=== PATIENT | male | born 1965 | race Caucasian/White ===

== ENCOUNTER 2017-03-12 07:49 | Outpatient (CLI) | payer OTHER ==
[2016-07-17 13:28] VITALS: BP 131/96
[2017-03-12] MEDS ORDERED: SALINE FLUSH 10 ML DISP.SYRIN IVF ONE (08:00)
[2017-03-12] MEDS ORDERED: HEPARIN SODIUM 500 UNIT/5 ML DISP.SYRIN IV ONE (08:00)
[2017-03-12] MEDS ORDERED: NORMAL SALINE 1,000 ML IV.SOLN IV ONE (08:00)
== END 2017-03-12 07:50 ==
LOC: INF 07:49
PROVIDERS: ATTEND Clinical Nurse Specialist Oncology
DX: C7A.8 Other malignant neuroendocrine tumors (principal); K90.9 Intestinal malabsorption, unspecified; E86.0 Dehydration
CPT/HCPCS: 96360; 96361; J1642; J7030

== ENCOUNTER 2017-03-15 07:55 | Outpatient (CLI) | payer OTHER ==
[2016-07-17 13:28] VITALS: BP 131/96
[2017-03-15] MEDS ORDERED: HEPARIN SODIUM 500 UNIT/5 ML DISP.SYRIN IV ONE (08:00)
[2017-03-15] MEDS ORDERED: SALINE FLUSH 10 ML DISP.SYRIN IVF ONE (08:00)
[2017-03-15] MEDS ORDERED: NORMAL SALINE 1,000 ML IV.SOLN IV ONE (08:00)
== END 2017-03-15 07:56 ==
LOC: INF 07:55
PROVIDERS: ATTEND Clinical Nurse Specialist Oncology
DX: C7A.8 Other malignant neuroendocrine tumors (principal); K90.9 Intestinal malabsorption, unspecified; E86.0 Dehydration
CPT/HCPCS: 96360; 96361; J1642; J7030

== ENCOUNTER 2017-03-19 07:48 | Outpatient (CLI) | payer OTHER ==
[2016-07-17 13:28] VITALS: BP 131/96
[2017-03-19] MEDS ORDERED: SALINE FLUSH 10 ML DISP.SYRIN IVF ONE (09:00)
[2017-03-19] MEDS ORDERED: HEPARIN SODIUM 500 UNIT/5 ML DISP.SYRIN IV ONE (09:00)
[2017-03-19] MEDS ORDERED: NORMAL SALINE 1,000 ML IV.SOLN IV ONE (09:00)
== END 2017-03-19 07:50 ==
LOC: INF 07:48
PROVIDERS: ATTEND Clinical Nurse Specialist Oncology
DX: C7A.8 Other malignant neuroendocrine tumors (principal); K90.9 Intestinal malabsorption, unspecified; E86.0 Dehydration
CPT/HCPCS: 96360; 96361; J1642; J7030

== ENCOUNTER 2017-03-26 07:46 | Outpatient (CLI) | payer OTHER ==
[2016-07-17 13:28] VITALS: BP 131/96
[2017-03-26] MEDS ORDERED: HEPARIN SODIUM 500 UNIT/5 ML DISP.SYRIN IV ONE (08:00)
[2017-03-26] MEDS ORDERED: NORMAL SALINE 1,000 ML IV.SOLN IV ONE (08:00)
[2017-03-26] MEDS ORDERED: SALINE FLUSH 10 ML DISP.SYRIN IVF ONE (08:00)
[2017-03-26] MEDS ORDERED: 0.9 % SODIUM CHLORIDE 2,000 ML IV SCH (08:00)
== END 2017-03-26 07:47 ==
LOC: INF 07:46
PROVIDERS: ATTEND Clinical Nurse Specialist Oncology
DX: C7A.8 Other malignant neuroendocrine tumors (principal); K90.9 Intestinal malabsorption, unspecified; E86.0 Dehydration
CPT/HCPCS: 96360; 96361; J1642; J7030

== ENCOUNTER 2017-03-29 14:51 | Outpatient (CLI) | payer OTHER ==
[~2017-03-29 14:51] MED LIST: 0.9 % SODIUM CHLORIDE 1,000 ML IV ONE
[2017-03-29] MEDS ORDERED: 0.9 % SODIUM CHLORIDE 2,000 ML IV ONE (14:55)
[2017-03-29] MEDS ORDERED: SALINE FLUSH 10 ML DISP.SYRIN IV ONE (14:56)
[2017-03-29] MEDS ORDERED: NORMAL SALINE 1,000 ML IV.SOLN IV ONE (15:00)
[2017-03-29] MEDS ORDERED: HEPARIN SODIUM 500 UNIT/5 ML DISP.SYRIN IV ONE (15:00)
[2017-03-29] MEDS ORDERED: SALINE FLUSH 10 ML DISP.SYRIN IVF ONE (15:00)
[2017-03-29] MEDS ORDERED: 0.9 % SODIUM CHLORIDE 1,000 ML IV ONE (16:00)
[2017-03-29 16:16] VITALS: BP 90/63
[2017-03-29] MEDS ORDERED: HEPARIN SODIUM,PORCINE 30 UNITS INJ IV ONE (17:00)
== END 2017-03-29 14:52 ==
LOC: INF 14:51
PROVIDERS: ATTEND Clinical Nurse Specialist Oncology
DX: C7A.8 Other malignant neuroendocrine tumors (principal); K90.9 Intestinal malabsorption, unspecified; E86.0 Dehydration
CPT/HCPCS: 96360; 96361; J1642; J7030

== ENCOUNTER 2017-04-02 07:52 | Outpatient (CLI) | payer OTHER ==
[2017-04-02] MEDS ORDERED: NORMAL SALINE 1,000 ML IV.SOLN IV ONE (08:00)
[2017-04-02] MEDS ORDERED: SALINE FLUSH 10 ML DISP.SYRIN IVF ONE (08:00)
[2017-04-02] MEDS ORDERED: HEPARIN SODIUM 500 UNIT/5 ML DISP.SYRIN IV ONE (08:00)
[2017-04-02] MEDS ORDERED: 0.9 % SODIUM CHLORIDE 1,000 ML IV SCH (09:00)
== END 2017-04-02 07:53 ==
LOC: INF 07:52
PROVIDERS: ATTEND Clinical Nurse Specialist Oncology
DX: C7A.098 Malignant carcinoid tumors of other sites (principal); K90.9 Intestinal malabsorption, unspecified; E86.0 Dehydration
CPT/HCPCS: J1642; J7030; 96360; 96361

== ENCOUNTER 2017-04-05 07:52 | Outpatient (CLI) | payer OTHER ==
[2017-04-05] MEDS ORDERED: HEPARIN SODIUM 500 UNIT/5 ML DISP.SYRIN IV ONE (08:00)
[2017-04-05] MEDS ORDERED: NORMAL SALINE 1,000 ML IV.SOLN IV ONE (08:00)
[2017-04-05] MEDS ORDERED: SALINE FLUSH 10 ML DISP.SYRIN IVF ONE (08:00)
== END 2017-04-05 07:53 ==
LOC: INF 07:52
PROVIDERS: ATTEND Clinical Nurse Specialist Oncology
DX: C7A.098 Malignant carcinoid tumors of other sites (principal); K90.9 Intestinal malabsorption, unspecified; E86.0 Dehydration
CPT/HCPCS: 96360; 96361; J1642; J7030

== ENCOUNTER 2017-04-09 07:41 | Outpatient (CLI) | payer OTHER ==
[2017-04-09] MEDS ORDERED: SALINE FLUSH 10 ML DISP.SYRIN IVF ONE (08:00)
[2017-04-09] MEDS ORDERED: NORMAL SALINE 1,000 ML IV.SOLN IV ONE (08:00)
[2017-04-09] MEDS ORDERED: HEPARIN SODIUM 500 UNIT/5 ML DISP.SYRIN IV ONE (08:00)
[2017-04-09] MEDS ORDERED: 0.9 % SODIUM CHLORIDE 2,000 ML IV SCH (09:00)
== END 2017-04-09 07:45 ==
LOC: INF 07:41
PROVIDERS: ATTEND Clinical Nurse Specialist Oncology
DX: C7A.098 Malignant carcinoid tumors of other sites (principal); K90.9 Intestinal malabsorption, unspecified; E86.0 Dehydration
CPT/HCPCS: 96360; 96361; J1642; J7030

== ENCOUNTER 2017-04-16 07:45 | Outpatient (CLI) | payer OTHER ==
[2017-04-16] MEDS ORDERED: 0.9 % SODIUM CHLORIDE 2,000 ML IV ONE (07:57)
[2017-04-16] MEDS ORDERED: NORMAL SALINE 1,000 ML IV.SOLN IV ONE (08:00)
[2017-04-16] MEDS ORDERED: HEPARIN SODIUM 500 UNIT/5 ML DISP.SYRIN IV ONE (08:00)
[2017-04-16] MEDS ORDERED: SALINE FLUSH 10 ML DISP.SYRIN IVF ONE (08:00)
== END 2017-04-16 07:46 ==
LOC: INF 07:45
PROVIDERS: ATTEND Clinical Nurse Specialist Oncology
DX: C7A.098 Malignant carcinoid tumors of other sites (principal); K90.9 Intestinal malabsorption, unspecified
CPT/HCPCS: J1642; J7030; 96360; 96361

== ENCOUNTER 2017-04-19 07:45 | Outpatient (CLI) | payer OTHER ==
[2017-04-19] MEDS ORDERED: SALINE FLUSH 10 ML DISP.SYRIN IVF ONE (08:00)
[2017-04-19] MEDS ORDERED: HEPARIN SODIUM 500 UNIT/5 ML DISP.SYRIN IV ONE (08:00)
[2017-04-19] MEDS ORDERED: NORMAL SALINE 1,000 ML IV.SOLN IV ONE (08:00)
== END 2017-04-19 07:46 ==
LOC: INF 07:45
PROVIDERS: ATTEND Clinical Nurse Specialist Oncology
DX: C7A.098 Malignant carcinoid tumors of other sites (principal); K90.9 Intestinal malabsorption, unspecified
CPT/HCPCS: J1642; J7030; 96360; 96361

== ENCOUNTER 2017-04-23 07:43 | Outpatient (CLI) | payer OTHER ==
[2017-04-23] MEDS ORDERED: HEPARIN SODIUM 500 UNIT/5 ML DISP.SYRIN IV ONE (08:00)
[2017-04-23] MEDS ORDERED: NORMAL SALINE 1,000 ML IV.SOLN IV ONE (08:00)
[2017-04-23] MEDS ORDERED: SALINE FLUSH 10 ML DISP.SYRIN IVF ONE (08:00)
== END 2017-04-23 07:44 ==
LOC: INF 07:43
PROVIDERS: ATTEND Clinical Nurse Specialist Oncology
DX: C7A.098 Malignant carcinoid tumors of other sites (principal); K90.9 Intestinal malabsorption, unspecified
CPT/HCPCS: 96360; 96361; J1642; J7030

== ENCOUNTER 2017-04-26 07:44 | Outpatient (CLI) | payer OTHER ==
[2017-04-26] MEDS ORDERED: SALINE FLUSH 10 ML DISP.SYRIN IVF ONE (08:00)
[2017-04-26] MEDS ORDERED: HEPARIN SODIUM 500 UNIT/5 ML DISP.SYRIN IV ONE (08:00)
[2017-04-26] MEDS ORDERED: NORMAL SALINE 1,000 ML IV.SOLN IV ONE (08:00)
== END 2017-04-26 07:45 ==
LOC: INF 07:44
PROVIDERS: ATTEND Clinical Nurse Specialist Oncology
DX: C7A.098 Malignant carcinoid tumors of other sites (principal); K90.9 Intestinal malabsorption, unspecified
CPT/HCPCS: 96360; 96361; J1642; J7030

== ENCOUNTER 2017-04-30 07:51 | Outpatient (CLI) | payer OTHER ==
[~2017-04-30 07:51] MED LIST changes: -0.9 % SODIUM CHLORIDE 1,000 ML IV ONE; +0.9 % SODIUM CHLORIDE 2,000 ML IV ONE; +SALINE FLUSH 10 ML DISP.SYRIN IVF ONE
[2017-04-30] MEDS ORDERED: HEPARIN SODIUM 500 UNIT/5 ML DISP.SYRIN IV ONE (08:00)
[2017-04-30] MEDS ORDERED: SALINE FLUSH 10 ML DISP.SYRIN IVF ONE (08:00)
[2017-04-30] MEDS ORDERED: NORMAL SALINE 1,000 ML IV.SOLN IV ONE (08:00)
== END 2017-04-30 12:50 ==
LOC: INF 07:51
PROVIDERS: ATTEND Clinical Nurse Specialist Oncology
DX: C7A.098 Malignant carcinoid tumors of other sites (principal); K90.9 Intestinal malabsorption, unspecified
CPT/HCPCS: 96360; 96361; J1642; J7030

== ENCOUNTER 2017-05-03 07:50 | Outpatient (CLI) | payer OTHER ==
[2017-05-03] MEDS ORDERED: HEPARIN SODIUM 500 UNIT/5 ML DISP.SYRIN IV ONE (08:00)
[2017-05-03] MEDS ORDERED: NORMAL SALINE 1,000 ML IV.SOLN IV ONE (08:00)
[2017-05-03] MEDS ORDERED: SALINE FLUSH 10 ML DISP.SYRIN IVF ONE (08:00)
== END 2017-05-03 09:02 ==
LOC: INF 07:50
PROVIDERS: ATTEND Clinical Nurse Specialist Oncology
DX: C7A.098 Malignant carcinoid tumors of other sites (principal); K90.9 Intestinal malabsorption, unspecified
CPT/HCPCS: 96360; 96361; J1642; J7030

== ENCOUNTER 2017-05-07 07:44 | Outpatient (CLI) | payer OTHER ==
[2017-05-07] MEDS ORDERED: NORMAL SALINE 1,000 ML IV.SOLN IV ONE (08:00)
[2017-05-07] MEDS ORDERED: SALINE FLUSH 10 ML DISP.SYRIN IVF ONE (08:00)
[2017-05-07] MEDS ORDERED: HEPARIN SODIUM 500 UNIT/5 ML DISP.SYRIN IV ONE (08:00)
== END 2017-05-07 07:45 ==
LOC: INF 07:44
PROVIDERS: ATTEND Clinical Nurse Specialist Oncology
DX: C7A.098 Malignant carcinoid tumors of other sites (principal); K90.9 Intestinal malabsorption, unspecified
CPT/HCPCS: J1642; J7030; 96360; 96361

== ENCOUNTER 2017-05-10 07:47 | Outpatient (CLI) | payer OTHER ==
[2017-05-10] MEDS ORDERED: HEPARIN SODIUM 500 UNIT/5 ML DISP.SYRIN IV ONE (08:00)
[2017-05-10] MEDS ORDERED: SALINE FLUSH 10 ML DISP.SYRIN IVF ONE (08:00)
[2017-05-10] MEDS ORDERED: NORMAL SALINE 1,000 ML IV.SOLN IV ONE (08:00)
== END 2017-05-10 08:00 ==
LOC: INF 07:47
PROVIDERS: ATTEND Clinical Nurse Specialist Oncology
DX: C7A.098 Malignant carcinoid tumors of other sites (principal); K90.9 Intestinal malabsorption, unspecified
CPT/HCPCS: J1642; J7030; 96360; 96361

== ENCOUNTER 2017-05-14 07:45 | Outpatient (CLI) | payer OTHER ==
[2017-05-14] MEDS ORDERED: NORMAL SALINE 1,000 ML IV.SOLN IV ONE (08:00)
[2017-05-14] MEDS ORDERED: SALINE FLUSH 10 ML DISP.SYRIN IVF ONE (08:00)
[2017-05-14] MEDS ORDERED: HEPARIN SODIUM 500 UNIT/5 ML DISP.SYRIN IV ONE (08:00)
== END 2017-05-14 07:46 ==
LOC: INF 07:45
PROVIDERS: ATTEND Clinical Nurse Specialist Oncology
DX: C7A.098 Malignant carcinoid tumors of other sites (principal); K90.9 Intestinal malabsorption, unspecified
CPT/HCPCS: J1642; J7030; 96360; 96361

== ENCOUNTER 2017-05-17 07:51 | Outpatient (CLI) | payer OTHER ==
[2017-05-17] MEDS ORDERED: SALINE FLUSH 10 ML DISP.SYRIN IVF ONE ×3 (08:00→08:54)
[2017-05-17] MEDS ORDERED: NORMAL SALINE 1,000 ML IV.SOLN IV ONE (08:00)
[2017-05-17] MEDS ORDERED: 0.9 % SODIUM CHLORIDE 1,000 ML IV SCH (08:30)
== END 2017-05-17 07:52 ==
LOC: INF 07:51
PROVIDERS: ATTEND Clinical Nurse Specialist Oncology
DX: C7A.098 Malignant carcinoid tumors of other sites (principal); K90.9 Intestinal malabsorption, unspecified
CPT/HCPCS: 96360; 96361; J7030; S1016

== ENCOUNTER 2017-05-22 07:43 | Outpatient (CLI) | payer OTHER ==
[2017-05-22] MEDS ORDERED: SALINE FLUSH 10 ML DISP.SYRIN IVF ONE (08:00)
[2017-05-22] MEDS ORDERED: NORMAL SALINE 1,000 ML IV.SOLN IV ONE (08:00)
== END 2017-05-22 07:44 ==
LOC: INF 07:43
PROVIDERS: ATTEND Clinical Nurse Specialist Oncology
DX: C7A.098 Malignant carcinoid tumors of other sites (principal); K90.9 Intestinal malabsorption, unspecified
CPT/HCPCS: 96360; 96361; J7030; S1016

== ENCOUNTER 2017-05-24 07:47 | Outpatient (CLI) | payer OTHER ==
[2017-05-24] MEDS ORDERED: NORMAL SALINE 1,000 ML IV.SOLN IV ONE (08:00)
[2017-05-24] MEDS ORDERED: SALINE FLUSH 10 ML DISP.SYRIN IVF ONE (08:00)
== END 2017-05-24 07:50 ==
LOC: INF 07:47
PROVIDERS: ATTEND Clinical Nurse Specialist Oncology
DX: C7A.098 Malignant carcinoid tumors of other sites (principal); K90.9 Intestinal malabsorption, unspecified
CPT/HCPCS: J7030 ×3; 96360; 96361; S1016

== ENCOUNTER 2017-05-29 07:54 | Outpatient (CLI) | payer OTHER ==
[2017-05-29] MEDS ORDERED: SALINE FLUSH 10 ML DISP.SYRIN IVF ONE (08:00)
[2017-05-29] MEDS ORDERED: NORMAL SALINE 1,000 ML IV.SOLN IV ONE (08:00)
== END 2017-05-29 07:55 ==
LOC: INF 07:54
PROVIDERS: ATTEND Clinical Nurse Specialist Oncology
DX: C7A.098 Malignant carcinoid tumors of other sites (principal); K90.9 Intestinal malabsorption, unspecified
CPT/HCPCS: 96360; 96361; J7030; S1016

== ENCOUNTER 2017-05-31 07:54 | Outpatient (CLI) | payer OTHER ==
[2017-05-31] MEDS ORDERED: NORMAL SALINE 1,000 ML IV.SOLN IV ONE (08:00)
[2017-05-31] MEDS ORDERED: SALINE FLUSH 10 ML DISP.SYRIN IVF ONE (08:00)
== END 2017-05-31 07:55 ==
LOC: INF 07:54
PROVIDERS: ATTEND Clinical Nurse Specialist Oncology
DX: C7A.098 Malignant carcinoid tumors of other sites (principal); K90.9 Intestinal malabsorption, unspecified
CPT/HCPCS: J7030 ×3; 96360; 96361; S1016

== ENCOUNTER 2017-06-07 07:48 | Outpatient (CLI) | payer OTHER ==
[~2017-06-07 07:48] MED LIST changes: -SALINE FLUSH 10 ML DISP.SYRIN IVF ONE
[2017-06-07] MEDS ORDERED: NORMAL SALINE 1,000 ML IV.SOLN IV ONE (08:00)
[2017-06-07] MEDS ORDERED: SALINE FLUSH 10 ML DISP.SYRIN IVF ONE (08:00)
== END 2017-06-07 07:50 ==
LOC: INF 07:48
PROVIDERS: ATTEND Psychiatry & Neurology Neurology
DX: C7A.098 Malignant carcinoid tumors of other sites (principal); K90.9 Intestinal malabsorption, unspecified
CPT/HCPCS: J7030 ×2; 96360; S1016